=== PATIENT | female | born 1930 | race Caucasian/White ===

== ENCOUNTER 2016-07-22 11:15 | Emergency (ER) | payer MEDICARE ==
[~2016-07-22] VITALS: Ht 157.5 cm; Wt 43.1 kg
[~2016-07-22 11:15] MED LIST: ASPI81CT89 PO; ATI.5 PO; CHOL20001 PO; CILO100T13 PO; FERR325E14 PO; KEP500 PO; SIMV40TA1 PO; SIN25100 PO; ZOLP5TAB1 PO
--- NOTE | 2016-07-22 11:16 | NUR ---
Patient BIBA BLS from [facility], transferred to bed 7. RN evaluating patient at bedside.
--- NOTE | 2016-07-22 11:18 | NUR ---
BROUGHT IN VIA EMS FROM [facility] BY [facility] 1226. G-TUBE PEG OUT--PT DENIES PAIN TO ABDOMEN, BELL CATHETER NOTED, PURULENT TUBING. PT AWAKE ORIENTED TO PLACE AND EVENT; FULL CODE; HX UTI, COPD, DEMENTIA, PARKINSON'S, ALHEIZMER'S, HTN, GERD, ANEMIA, PNA, ANXIETYPATIENT PRESENTS TO ED WITH; DENIES N/V/D; SKIN IS PINK/WARM/DRY; AAOX4 WITH EVEN AND STEADY GAIT; LUNGS CLEAR BL; HR EVEN AND REGULAR; PT DENIES ANY FEVER, CP, SOB, OR COUGH AT THIS TIME; PATIENT STATES PAIN OF 0/10 AT THIS TIME; VSS; PATIENT POSITIONED FOR COMFORT; HOB ELEVATED; BEDRAILS UP X2; BED DOWN. ER MD MADE AWARE OF PT STATUS.
--- NOTE | 2016-07-22 11:19 | NUR ---
Dr. Matta evaluating patient at bedside.
--- NOTE | 2016-07-22 11:20 | NUR ---
ASSISTED DR CEVALLOS ON INSERTING A NEW GTUBE, TOLERATED WELL, AWAITING XRAY FOR PLACEMENT, WILL CONTINUE TO MONITOR
[2016-07-22 11:23] VITALS: BP 132/96
--- NOTE | 2016-07-22 11:41 | NUR ---
entry level automotive technician at bedside.
--- NOTE | 2016-07-22 12:01 | NUR ---
TUBE PLACEMENT CONFIRMED BY DR CEVALLOS THROUGH XRAY, WILL CALL [facility], AWAITING EMS FOR TRANSFER BACK TO [facility].
--- NOTE | 2016-07-22 12:10 | NUR ---
REPORT GIVEN TO RN CEMENTING BULK MATERIAL OPERATOR MILI AT [facility], NOTIFIED OF NEW G-TUBE PLACEMENT SIZE 20G, ETA FOR EMS 45 MINUTES. Addendum: 07/22/16 at 1222 by ADAM PT GOING TO ROOM 37A AT [facility] PER RN CEMENTING BULK MATERIAL OPERATOR CAMILLE
--- NOTE | 2016-07-22 13:17 | NUR ---
[facility] at bedside for return transport to [facility].
[2016-07-22 13:20] VITALS: BP 131/91
--- NOTE | 2016-07-22 13:20 | NUR ---
Patient discharged BACK TO [facility] with v/s stable. Written and verbal after care instructions given and explained. Patient verbalized understanding. Ambulance Transport with EMT GUALBERTO to custodial. All questions addressed prior to discharge. Advised to follow up with PMD.
== END 2016-07-22 13:20 ==
LOC: MED 11:15
DX: K94.23 Gastrostomy malfunction (principal); I10 Essential (primary) hypertension; Z86.73 Personal history of transient ischemic attack (TIA), and cerebral infarction without residual deficits; Z88.5 Allergy status to narcotic agent; Z88.8 Allergy status to other drugs, medicaments and biological substances; Z79.82 Long term (current) use of aspirin
CPT/HCPCS: 43760; 74241; 99284; Q0092

== ENCOUNTER 2016-08-13 17:39 | Inpatient (IN) | payer MEDICARE, MEDICAID ==
[~2016-08-13] VITALS: Ht 157.5 cm; Wt 43.1 kg
[~2016-08-13 17:39] MED LIST changes: +AMBIEN5 MG PO; -ASPI81CT89 PO; +ASPIRIN81 M1 PO; -ATI.5 PO; +ATIVAN0.5 MG PO; +CELEXA20 MG PO; -CHOL20001 PO; -CILO100T13 PO; +DIOVAN160 M1 PO; -FERR325E14 PO; +FERROUS SULFAT325 MG PO; -KEP500 PO; +KEPPRA500 MG PO; +METOPROLOL TART25 MG PO; +MIRAPEX0.5 MG PO; +NAPROSYN375 MG PO; +NEURONTIN100 MG PO; +NEURONTIN300 MG PO; +OLANZAPINE2.5 MG PO; +PLETAL100 MG PO; -SIMV40TA1 PO; -SIN25100 PO; +SINEMET 25/1001 TAB PO; +TOPROL XL25 MG PO; +ULTRAM50 MG PO; +VITAMIN D2000 I1 PO; +ZESTORETIC 12.51 TA2 PO; +ZESTRIL10 MG PO; +ZOCOR40 MG PO; -ZOLP5TAB1 PO
[2016-08-13 17:44] VITALS: BP 209/109
--- NOTE | 2016-08-13 17:46 | NUR ---
Patient BIBA ACLS accompanied by Leroy SWEENEY, transferred to bed 7. Dr. Ohara, RT, and RN evaluating patient at bedside.
[2016-08-13] MEDS ORDERED: REQUIP0.5 MG PO (17:51)
[2016-08-13] MEDS ORDERED: ULTRAM50 MG PO (17:51)
[2016-08-13] MEDS ORDERED: CARAFATE1 GM PO (17:51)
[2016-08-13 17:54] VITALS: BP 189/106
--- NOTE | 2016-08-13 18:15 | NUR ---
project technician at bedside.
--- NOTE | 2016-08-13 18:20 | NUR ---
BIBA FROM [facility] WITH C/O RESP DISTRESS; DENIES N/V/D; SKIN IS PINK/WARM/DRY; AAOX4 WITH EVEN AND STEADY GAIT; LUNGS RALES BL; HR EVEN AND REGULAR; PT DENIES ANY FEVER OR CP AT THIS TIME; PATIENT STATES PAIN OF 0/10 AT THIS TIME; VSS; PATIENT POSITIONED FOR COMFORT; HOB ELEVATED; BEDRAILS UP X2; BED DOWN. ER MD MADE AWARE OF PT STATUS.
[2016-08-13] MEDS ORDERED: NACL 0.9% 500 ML IV ONE (19:00)
[2016-08-13] MEDS ORDERED: LEVOFLOXACIN 500 MG/D5W PREMIX 100 ML IV ONE (19:00)
[2016-08-13] MEDS ORDERED: ONDANSETRON 4 MG/2 ML VIAL IVP PRN (19:30)
[2016-08-13] MEDS ORDERED: ALBUTEROL 0.083% 2.5 MG/3 ML NEBU IH PRN (19:30)
--- NOTE | 2016-08-13 19:30 | NUR ---
REPORT GIVEN TO MATEUSZ SCHAFER
[2016-08-13] MEDS ORDERED: KETOROLAC 30 MG/ML VIAL IVP PRN (19:35)
[2016-08-13] MEDS ORDERED: hePARIN / DEXT 5% PREMIX 250 ML IV SCH ×2 (19:45→20:20)
[2016-08-13] MEDS ORDERED: HEPARIN PER PHARMACY MC PRN (19:45)
[2016-08-13] MEDS ORDERED: methylPREDNISolone SS 125 MG/2 ML VIAL IVP ONE (19:45)
[2016-08-13] MEDS ORDERED: LISINOPRIL 5 MG TAB PO SCH (19:50)
[2016-08-13] MEDS ORDERED: LABETALOL 100 MG/20 ML VIAL IVP ONE (19:50)
[2016-08-13 19:56] VITALS: BP 142/75
--- NOTE | 2016-08-13 20:06 | NUR ---
Patient will be admitted to care of DR. JARRETT. Admited to TELEMETRY. Will go to [id number]. Belongings list completed. Report to LUPE CHILD.
--- NOTE | 2016-08-13 20:08 | NUR ---
incentive spirometer ordered by frankie boyer- patient is on BIPAP 03/13 100%, MACHINE RATE -16BPM, SPONTANOUS IS RR-44, [id number], IS IS ON HOLD FOR NOW
--- NOTE | 2016-08-13 20:20 | NUR ---
ADMITTED 86 YEARS OLD FEMALE FROM ER VIA [facility] FOR RESPIRATORY DISTRESS. SEE NURSING ADMISSION AND ASSESSMENT. ON BIPAP ORDERED. GT TUBE CLAMPED. PICTURES TAKEN. BODY CHECKED WITH SHOE REPAIRER HELPER. BELL CATHETER DRAINING WELL. CALL LIGHT WITHIN REACH.
--- NOTE | 2016-08-13 21:00 | NUR ---
REPOSITIONED PATIENT ASSISTED BY CHILD SUPPORT AGENT.
[2016-08-13] MEDS: NACL 0.9% 1,000 ML IV SCH (21:52)
[2016-08-13] MEDS: METOPROLOL 25 MG TAB PO SCH (21:53)
[2016-08-13] MEDS ORDERED: CLINDAMYCIN 600 MG/4 ML VIAL ONE (23:35)
--- NOTE | 2016-08-14 | NUR ---
RT AT BEDSIDE TO CHECK ON PATIENT. VITAL SIGNS STABLE. CALL LIGHT WITHIN REACH.
[2016-08-14] MEDS: CLINDAMYCIN 600 MG in DEXTROSE 5% 50 ML IV SCH ×5 (00:18→23:26)
[2016-08-14 00:37] VITALS: BP 150/73
--- NOTE | 2016-08-14 00:40 | NUR ---
RESIDENT PAGED FOR ORDERS.
--- NOTE | 2016-08-14 01:12 | NUR ---
SECOND PAGED FOR RESIDENT.
--- NOTE | 2016-08-14 01:45 | NUR ---
SPOKE TO RESIDENT PERFORMANCE MANAGER, WILL ORDER PTT AT 0345. Addendum: 08/14/16 at 0717 by Karen Chavis RN MENTIONED TO RESIDENT IF OKAY TO ORDER WOUND CARE CONSULT AND WOUND CULTURE, WILL NOT ORDER FOR NOW.
[2016-08-14] MEDS: NACL 0.9% 1,000 ML IV SCH (02:56)
[2016-08-14] MEDS: ALBUTEROL 0.083% 2.5 MG/3 ML NEBU IH SCH ×4 (03:51→19:13)
[2016-08-14 04:22] VITALS: BP 128/67
--- NOTE | 2016-08-14 04:24 | NUR ---
PERICARE DONE WITH MINER PLACER. REPOSITIONED BY MINER PLACER. VITAL SIGNS STABLE, RR-27. CALL LIGHT WITHIN REACH.
[2016-08-14] MEDS: methylPREDNISolone SS 125 MG/2 ML VIAL IVP SCH ×3 (04:40→23:24)
[2016-08-14] MEDS ORDERED: CLINDAMYCIN 600 MG/4 ML VIAL ONE (05:34)
[2016-08-14] MEDS: BUDESONIDE 0.5 MG/2 ML NEBU INH SCH ×2 (06:38→19:13)
--- NOTE | 2016-08-14 06:38 | NUR ---
RECEIVED PT ON VISION BIPAP ST 12\6 RR 16 FIO2 50 ALARMS ARE ON AND FUNCTIONAL BS COARSE PT IN HF QUIET WEARING MED SIZE MASK GEL UNDER MASK CONT POX PLACED BEDSIDE HHN GIVEN I\L WITH 2.5 MG ALBUTEROL BIPA POX PLUGGED INTO RED OUTLET
--- NOTE | 2016-08-14 07:16 | NUR ---
ENDORSED CARE AT BEDSIDE WITH COLT CHILD, PATIENT IN STABLE CONDITION.
--- NOTE | 2016-08-14 07:17 | NUR ---
RECEIVED PT ASLEEP, NON VERBAL, ON BIPAP WITH RESPIRATORY RATE OF 36. ALSO WITH BELL CATHETER CONNECTED TO URINE BAG DRAINING YELLOW URINE, WITH IV ACCESS AT LEFT HAND 22G ON SALINE LOCK PATENT AND INTACT. ALSO WITH IV ACCESS AT LEFT AC 20G INFUSING FLUIDS WELL. WITH DRESSING AT SACRAL WOUND DRY AND INTACT. WITH SCDS ON. WITH BILATERAL CRACKLES HEARD UPON AUSCULTATION. PLACED PT ON FALL RISK. SAFETY PRECAUTIONS ENFORCED. CALL LIGHT WITHIN REACH, WILL CONTINUE TO MONITOR.
[2016-08-14 08:00] VITALS: BP 147/71
--- NOTE | 2016-08-14 08:11 | NUR ---
FIO2 INCREASED TO 60 PT DESATS
[2016-08-14] MEDS: ATORVASTATIN 20 MG TAB PO SCH (08:29)
[2016-08-14] MEDS: LISINOPRIL 5 MG TAB PO SCH (08:29)
[2016-08-14] MEDS: METOPROLOL 25 MG TAB PO SCH ×2 (08:30→23:24)
[2016-08-14] MEDS: FERROUS SULFATE 325 MG TABEC PO SCH (08:30)
[2016-08-14] MEDS: ASPIRIN 81 MG TAB.CHEW PO SCH (08:30)
--- NOTE | 2016-08-14 08:30 | NUR ---
FORREST REPORTED TO DR JARRETT
--- NOTE | 2016-08-14 08:30 | NUR ---
SPO2 AT 88-91, RT INFORMED. RT AT BEDSIDE
--- NOTE | 2016-08-14 08:31 | NUR ---
BIPAP CHECK BS COARSE SX SET UP AND MASK REMOVED SX LG YELLOW ORALLY MASK REPLACED GEL UNDER MASK
--- NOTE | 2016-08-14 08:37 | NUR ---
VERIFIED GT PATENCY. DUE MEDS GIVEN VIA GT, PT TOLERATED WELL.
--- NOTE | 2016-08-14 08:59 | NUR ---
PATIENT HAS BEEN SCREENED AND CATEGORIZED HIGH NUTRITION RISK. PATIENT WILL BE SEEN WITHIN 1-2 DAYS OF ADMISSION. 08/14/16-08/15/[address]
--- NOTE | 2016-08-14 09:20 | NUR ---
PT TRANSFERRED TO WOUND CARE BED
--- NOTE | 2016-08-14 10:22 | NUR ---
PT SPO2 AT 83-84%. RT CALLED TO BEDSIDE
--- NOTE | 2016-08-14 10:31 | NUR ---
BIPAP CHECK BS INSP WHEEZING PRN HHN GIVEN I\L WITH 2.5 MG ALBUTEROL FIO2 INCREASED TO 100 SPO2 WAS 84 ON 60
[2016-08-14] MEDS ORDERED: hePARIN / DEXT 5% PREMIX 250 ML IV SCH ×2 (10:50)
[2016-08-14] MEDS ORDERED: HEPARIN PER PHARMACY MC PRN ×2 (10:50)
--- NOTE | 2016-08-14 11:03 | NUR ---
CM NOTE PER CLOTH FEEDER JJ [phone], REVIEWS SHOULD ONLY BE SENT TO [facility]. SENT INITIAL REVIEW TO [facility] FAX# [phone] MARGIE RINCON PH# [phone]
[2016-08-14 12:00] VITALS: BP 138/63
[2016-08-14] MEDS: hePARIN / DEXT 5% PREMIX 250 ML IV SCH (12:50)
--- NOTE | 2016-08-14 12:53 | NUR ---
HEPARIN DRIP STARTED
--- NOTE | 2016-08-14 13:11 | NUR ---
08/14/16 RD INITIAL ASSESSMENT COMPLETED PLEASE REFER TO NUTRITION ASSESSMENT UNDER CARE ACTIVITY FOR ESTIMATED NUTRITIONAL NEEDS. 1. CONTINUE VITAMIN C SUPPLEMENTATION 2. WHEN MEDICALLY FEASIBLE, RESUME ENTERAL NUTRITION SUPPORT VIA G-TUBE: ISOSOURCE 1.5 JENNA TO START SLOW AT 30 ML/HR X20 HRS (12P-8A), AND ADVANCE 10 ML Q8H TO A GOAL RATE OF 50 ML/HR X20H (12P-8A). THIS WILL PROVIDE 1500 KCAL, 68 G PROTEIN, 808 ML FREE WATER (MEETS 100% KCAL+PROTEIN ESTIMATED NEEDS) 3. RD TO FOLLOW-UP 2-3 DAYS; HIGH RISK SONIYA BLACK RD Addendum: 08/16/16 at [address] RD SPOKE WITH RESIDENT REGARDING TUBE FEEDING FORMULA. ERICKSON RECOMMENDED ISOSOURCE 1.5 AT 30 ML/HR X24 HOURS AND ADVANCE TOLERATED 10 ML Q6H TO GOAL OF 45 ML/HR VS ABOVE RECOMMENDATION OF ISOSOURCE 1.5 GOAL OF 30 ML X 20 HOURS. AT GOAL OF 45 ML/HR THIS WILL PROVIDE: 1080 ML TOTAL VOLUME, 1620 KCAL, 73 GM PROTEIN TO MEET 100% OF PT ESTIMATED KCAL AND PROTEIN NEEDS NIRANJAN CALVERT RD
--- NOTE | 2016-08-14 13:19 | NUR ---
BIPAP CHECK DIMINISHED HHN GIVEN I\L WITH 2.5MG ALBUTEROL APNEA SET 20 SECONDS
--- NOTE | 2016-08-14 14:11 | NUR ---
SON AT BEDSIDE, WAITING TO SPEAK TO CM REGARDING HOSPICE PLACEMENT
--- NOTE | 2016-08-14 15:04 | NUR ---
SS NOTE: I SPOKE WITH DR. SERRANO. SHE STATED THAT PT WILL REQUIRE BI-PAP AT HOME ON HOSPICE. I SPOKE WITH PT'S SON, MAGO. HE STATED THAT HE WOULD LIKE TO HAVE HOSPICE COME TO EVALUATE PT. HE ALSO STATED THAT HE DOES NOT HAVE A PREFERENCE TO WHICH HOSPICE AGENCY THAT COMES TO SEE PT LONG IT IS NOT [facility].
--- NOTE | 2016-08-14 15:19 | NUR ---
BIPAP CHECK BS DIMINISHED DECREASE FIO2 TO 75
--- NOTE | 2016-08-14 15:21 | NUR ---
SS NOTE: PER RA FROM [facility] ([phone]), THEY CAN ACCOMMODATE PT'S NEED FOR BI-PAP. SHE ALSO STATED THAT THEY WILL CONTACT PT'S FAMILY TO ARRANGE A MEETING TIME.
[2016-08-14 16:00] VITALS: BP 123/53
--- NOTE | 2016-08-14 16:55 | NUR ---
PT JORGE ARMANDO AT BEDSIDE, SIGNED POLST FORM, PT NOW ON MODIFIED CODE
--- NOTE | 2016-08-14 17:05 | NUR ---
BIPAP CHECK BS DIMINISHED
--- NOTE | 2016-08-14 18:58 | NUR ---
IV OUT, REINSERTED IV AT RIGHT AC 20G INFUSING FLUIDS WELL.
[2016-08-14] MEDS ORDERED: LEVOFLOXACIN 750 MG/D5W PREMIX 150 ML IV SCH (19:00)
--- NOTE | 2016-08-14 19:10 | NUR ---
RECEIVED REPORT FROM MATEUSZ STEINER AT BEDSIDE. INITIAL ASSESSMENT COMPLETED. PT NONVERBAL. PT BEDBOUND. PT HAS IV TO RIGHT AC 20 G, AND LEFT HAND G 22 INFUSING HEPARIN. PT HAS A SACRAL WOUND COVERED WITH DRESSING DRY AND INTACT. PT HAS A G TUBE; PATENT AND INTACT. PT HAS A BELL CATHETER IN PLACE. PT ON BIPAP; RT AT BEDSIDE AT THIS TIME. PT STABLE, WILL CONTINUE TO MONITOR PT.
--- NOTE | 2016-08-14 19:24 | NUR ---
ENDORSED PT TO MATEUSZ CALERO FOR CONTINUITY OF CARE IN STABLE CONDITION
[2016-08-14 20:00] VITALS: BP 112/56
--- NOTE | 2016-08-14 20:00 | NUR ---
PT TURNED/REPOSITIONED. WILL CONTINUE TO MONITOR PT.
[2016-08-14] MEDS ORDERED: LEVOFLOXACIN 250 MG/D5 PREMIX 50 ML IV SCH (21:00)
--- NOTE | 2016-08-14 21:20 | NUR ---
TALKED TO DR. CABRERA TO IS COVERING FOR DR. JARRETT REGARDING PT'S HEPARIN DRIP. DR. CABRERA ORDER TO CONTINUE WITH HEPARIN PROTOCOL IT IS IN [facility]. WILL FOLLOW UP ON ORDERS.
--- NOTE | 2016-08-14 21:35 | NUR ---
HEPARIN BOLUS GIVEN AND HEPARIN INCREASED PER DR. CABRERA ORDERED. WILL CONTINUE TO MONITOR PT.
--- NOTE | 2016-08-14 21:50 | NUR ---
DR. PAGAN IN TO SEE PT. WILL FOLLOW UP ON ORDERS.
--- NOTE | 2016-08-14 22:00 | NUR ---
PT TURNED/REPOSITIONED. WILL CONTINUE TO MONITOR PT.
[2016-08-14] MEDS: rOPINIRole 0.25 MG TAB PO SCH (23:25)
--- NOTE | 2016-08-14 23:30 | NUR ---
G TUBE PATENT. WILL CONTINUE TO MONITOR PT.
[2016-08-15] VITALS: BP 99/56
--- NOTE | 2016-08-15 | NUR ---
PT TURNED/REPOSITIONED. WILL CONTINUE TO MONITOR PT.
--- NOTE | 2016-08-15 00:05 | NUR ---
PT ON BIPAP. PT SHOWING LABORED BREATHING. WILL CONTINUE TO MONITOR PT.
[2016-08-15] MEDS: ALBUTEROL 0.083% 2.5 MG/3 ML NEBU IH SCH ×4 (01:31→19:45)
--- NOTE | 2016-08-15 01:34 | NUR ---
RT AT BEDSIDE. WILL CONTINUE TO MONITOR PT.
--- NOTE | 2016-08-15 02:00 | NUR ---
PT TURNED/REPOSITIONED. WILL CONTINUE TO MONITOR PT.
--- NOTE | 2016-08-15 03:30 | NUR ---
CHILD DEVELOPMENT ASSISTANT AT BEDSIDE DRAWING BLOOD. WILL CONTINUE TO MONITOR PT.
[2016-08-15 04:00] VITALS: BP 98/61
--- NOTE | 2016-08-15 04:02 | NUR ---
RECEIVED CRITICAL LAB VALUE CARBON DIOXIDE 41. VALUE TRENDING DOWN. CHARGE NURSE AWARE. Addendum: 08/15/16 at 0456 by Kaylie Pizarro RN WRONG INTERVENTION.
--- NOTE | 2016-08-15 04:05 | NUR ---
PT TURNED/REPOSITIONED. WILL CONTINUE TO MONITOR PT.
--- NOTE | 2016-08-15 04:50 | NUR ---
RECEIVED CRITICAL LAB VALUE C02 41. CALL[address] DR. CABRERA WHO IS COVERING FOR DR. JARRETT. AWAITING LUBE MAN BACK.
--- NOTE | 2016-08-15 05:00 | NUR ---
TALKED TO DR. CABRERA TO NOTIFY HER ABOUT CRITICAL LAB VALUE OF CO2 41.0. DR. CABRERA STATED THAT BIPAP NEEDS TO BE ADJUSTED. WILL INFORM RT.
--- NOTE | 2016-08-15 05:05 | NUR ---
INFORMED RT HANA ABOUT ADJUSTING BIPAP ON PT. WILL CONTINUE TO MONITOR PT.
--- NOTE | 2016-08-15 05:25 | NUR ---
HEPARIN BOLUS GIVEN AND AND HEPARIN DRIP ADJUSTED ORDERED. WILL CONTINUE TO MONITOR PT.
[2016-08-15] MEDS: CLINDAMYCIN 600 MG in DEXTROSE 5% 50 ML IV SCH ×3 (05:51→19:07)
[2016-08-15] MEDS: methylPREDNISolone SS 125 MG/2 ML VIAL IVP SCH ×3 (05:52→21:21)
--- NOTE | 2016-08-15 06:00 | NUR ---
PT TURNED/REPOSITIONED. WILL CONTINUE TO MONITOR PT.
--- NOTE | 2016-08-15 06:29 | NUR ---
REC'D PT ON VISION BIPAP SETTINGS 12\6 RR 16 FIO2 75% ALARMS ON AND FUNCTIONING PROPERLY, AMBU BAG SIDE OF BIPAP AND BIPAP IS PLUGGED INTO RED OUTLET, I\L TXS GIVEN WITH ALBUTEROL 2.5MG AND PULMICORT 0.5MG WITH NO ADVERSE REACTION POST TX, B\S ARE COARSE BILATERALLY, PT IS WEARING MED FACE MASK WITH PROTETIC GEL IN PLACE AND SKIN INTEGRITY IS INTACT PT IS RESTING
[2016-08-15] MEDS: BUDESONIDE 0.5 MG/2 ML NEBU INH SCH ×2 (06:39→19:45)
--- NOTE | 2016-08-15 07:15 | NUR ---
REPORT RECEIVED AT BEDSIDE, PATIENT LYING COMFORTABLY IN BED, NO SIGN OF DISTRESS NOTED. PATIENT ON BIPAP AND HEPARIN DRIP AT 7 ML/HR.
--- NOTE | 2016-08-15 07:28 | NUR ---
ABG DRAWN ON RR WITHOUT INCIDENT AND RESULTS WERE GIVEN TO DR. AYALA AT 0742 AND ORDERS TO CHANGE BIPAP SETTINGS TO 14\7 RR20 FIO2 65% AND ABG AT 1100, CHANGES TO BIPAP WERE MADE AT 0745 AND MATEUSZ WU
--- NOTE | 2016-08-15 07:30 | NUR ---
ENDORSED PLAN OF CARE TO DAY SHIFT NURSE. PT IN STABLE CONDITION.
[2016-08-15 08:17] VITALS: BP 101/41
[2016-08-15] MEDS: METOPROLOL 25 MG TAB PO SCH ×2 (09:00→21:21)
[2016-08-15] MEDS: LISINOPRIL 5 MG TAB PO SCH (09:00)
--- NOTE | 2016-08-15 09:00 | NUR ---
WOUND CARE EVALUATION NOTES: REASON FOR EVALUATION: SACRAL DECUB COMPLETE SKIN ASSESSMENT DONE ON THIS 86 Y/O FEMALE PATIENT [facility], WITH INITIAL DIAGNOSIS OF ASPIRATION PNEUMONIA. PAST MEDICAL HISTORY INCLUDE COPD, HYPERTENSION, ALZHEIMER'S DEMENTIA, CVA AND CHRONIC RENAL FAILURE. ALL ABOVE INFORMATION WAS OBTAINED FROM THE ADMISSION H&P. LABS INCLUDE WBC 23.6, H/H 8.7/27.4, GLUCOSE 142, ALBUMIN 2.2, PT/INR 10.0/1.1 AND PTT 28.3. CURRENT MEDS INCLUDE ASCORBIC, LEVOFLOXACIN, HEPARIN, TRAMADOL, METHYLPREDNISOLONE AND CLINDAMYCIN. PATIENT IS LETHARGIC AT THIS TIME, ON BIPAP. SKIN WARM TO TOUCH WNL, THICKENED, YELLOW TOENAILS, NO EDEMA, NO HAIR GROWTH AND +2 BILATERAL PEDAL PULSES. FC 16FR PATENT AND INTACT TO LIGHT AARON URINE IN MODERATE AMOUNT. LUQ G TUBE, INTACT WITH GREENISH DISCHARGE NOTED ON THE PERISTOMAL AREA. SURGICAL SCARRING NOTED ON THE RIGHT ISCHIUM. NEEDS MAX ASSISTANCE IN TURNING. INITIAL PLAN OF CARE AND PRESSURE PREVENTIVE MEASURES DISCUSSED, UNABLE TO VERBALIZE UNDERSTANDING. WILL REINFORCE TEACHING. NO FAMILY MEMBER PRESENT AT THIS TIME, WILL FOLLOW UP. INTEGUMENTARY: LEFT HIP - ST II - INTACT BLISTER LEFT ISCHIUM - ST II - INTACT BLISTER SACRUM - UTD RECOMMENDATIONS: -CLEANSE SACRALCOCCYX WITH NS AND GAUZE, PAT DRY, APPLY THERAHONEY GEL, COVER WITH ADAPTIC AND COMPOSITE DRESSING Q DAY AND PRN WITH SOILING/DISPLACEMENT. -CLEANSE PERIAREA WITH MILD SOAP AND WATER, PAT DRY, APPLY Z GUARD BIDWC AND PRN WITH SOILING. LEAVE OPEN TO AIR -PAINT LEFT HIP AND LEFT ISCHIUM WITH SKIN PREP WIPES BIDWC AND LEAVE OPEN TO AIR -TURN AND REPOSITION PATIENT Q2H TO LEFT AND RIGHT SIDE ONLY TO OFFLOAD SACRALCOCCYX -ASSESS AND MONITOR SKIN CONDITION DURING POSITION CHANGE, PLEASE PAY PARTICULAR ATTENTION TO SACRALCOCCYX, ELBOWS AND HEELS -OFFLOAD BILATERAL HEELS BY PLACING PILLOWS UNDER CALVES AT ALL TIMES, UNLESS OTHERWISE CONTRAINDICATED -PRESSURE REDISTRIBUTION SURFACE THERAPY -KEEP SKIN CLEAN AND DRY AT ALL TIMES -SURGICAL CONSULT IF OK WITH PMD. RECOMMENDATIONS DISCUSSED WITH PRIMARY RN AND RESIDENT PHYSICIAN, DR. AYALA. WILL FOLLOW UP PATIENT Q 7 DAYS. PLEASE CONTACT [facility] FOR ANY CONCERNS, QUESTINS AND CHANGES IN SKIN CONDITION.
--- NOTE | 2016-08-15 09:05 | NUR ---
BIPAP CHECK PT SLEEPING W/ NO SIGNS OF DISTRESS AT THIS TIME
[2016-08-15] MEDS ORDERED: THERAHONEY GEL 42.5 GM TP PRN (09:10)
[2016-08-15] MEDS ORDERED: Z-GUARD PASTE TP PRN (09:10)
[2016-08-15] MEDS: hePARIN / DEXT 5% PREMIX 250 ML IV SCH (09:13)
--- NOTE | 2016-08-15 11:03 | NUR ---
SS NOTE: PER FELI FROM [facility], PT HAS EXHAUSTED HER HOSPICE BENEFITS I SPOKE WITH PT'S SON, MAGO REGARDING THE ABOVE INFORMATION. HE STATED THAT [facility] ALSO CALLED HIM TO EXPLAIN THE ABOVE INFORMATION. HE STATED THAT HE WOULD PREFER HOME HEALTH FOR PT INSTEAD OF HOSPICE AND DOES NOT WANT [facility].
--- NOTE | 2016-08-15 11:05 | NUR ---
BIPAP CHECK, ABG DRAWN ON RR W/O INCIDENT. AND RESULTS GIVEN TO DR. AYALA AT 11:20. WITH NO CHANGES MADE TO BIPAP. DR. AYALA ORDERED TO TITRATE FIO2 AT 88-92%
--- NOTE | 2016-08-15 11:09 | NUR ---
CM NOTE SENT CONCURRENT REVIEW TO [facility] FAX# [phone] MARGIE RINCON PH# [phone]
[2016-08-15] MEDS: CALCIUM ACETATE 667 MG TAB GT SCH ×2 (12:26→17:00)
[2016-08-15] MEDS: ASCORBIC ACID 500 MG/5 ML ORASYR GT SCH (12:27)
[2016-08-15] MEDS: SUCRALFATE 1 GM TAB PO SCH (12:27)
[2016-08-15] MEDS: FERROUS SULFATE 325 MG TABEC PO SCH (12:27)
[2016-08-15] MEDS: ASPIRIN 81 MG TAB.CHEW PO SCH (12:27)
[2016-08-15] MEDS: ATORVASTATIN 20 MG TAB PO SCH (12:27)
[2016-08-15 12:30] VITALS: BP 149/33
[2016-08-15] MEDS: traMADol 50 MG TAB PO PRN ×2 (12:38→22:55)
--- NOTE | 2016-08-15 12:53 | NUR ---
DAVE NOTE SENT ORDER FOR BIPAP AND HOME HEALTH FOR WOUND CARE TO [facility] FAX# [phone] MARGIE PH# [phone]
[2016-08-15] MEDS: THERAHONEY GEL 42.5 GM TP SCH (13:00)
[2016-08-15] MEDS: Z-GUARD PASTE TP SCH (13:00)
--- NOTE | 2016-08-15 13:12 | NUR ---
BIPAP CHECK,I/L TX GIVEN WITH ALBUTEROL 2.5 MG W/O ADVERSE REACTION. POST TX BS ARE COURSE. PT HAS EYES OPEN
--- NOTE | 2016-08-15 13:24 | NUR ---
DECREASED FIO2 TO 50% AND RN BRYCE NOTIFIED OF CHANGES MADE TO BIPAP
--- NOTE | 2016-08-15 13:25 | NUR ---
DAVE KAY SPOKE WITH DAVE RINCON OF [facility] AND SHE SAID SHE HAS CALLED AND FAXED [facility] FOR PATIENT'S BIPAP TO BE DELIVERED BEDSIDE. PER DAVE HANSON, SHE IS SETTING UP PATIENT'S HOME HEALTH FOR WOUND CARE WITH [facility]# [id number] # [phone] TO START WHEN THE PATIENT IS DISCHARGED. Addendum: 08/15/16 at 1340 by Betty Kraus CM INFORMED DAVE HANSON OF ADDRESS OF PATIENT'S SON MAGO WHERE PATIENT WILL BE GOING WHEN DISCHARGED FOR REFERENCE FOR PATIENT'S HOME HEALTH.
--- NOTE | 2016-08-15 13:36 | NUR ---
LATEST PTT DRAWN AT 1117 (48.8), NO CHANGE ON HEPARIN DRIP, NEXT PTT WILL BE AT 1717. WILL INFORM RESIDENCE DOCTOR TO PUT THE ORDER.
--- NOTE | 2016-08-15 15:16 | NUR ---
BIPAP CHECK, PT IS RESTING NO CHANGES MADE
[2016-08-15] MEDS: NACL 0.9% 1,000 ML IV SCH (15:28)
--- NOTE | 2016-08-15 15:55 | NUR ---
SPOKE WITH MAGO (SON) OVER THE PHONE [phone], NOTIFIED BIPAP MACHINE WILL BE DELIVERED TODAY IN PATIENT RESIDENCE AND SOMEONE HAS TO BE THERE FOR TEACHING. MAGO VERBALIZED UNDERSTANDING GAVE [facility] TEL NUMBER [phone] RAUL LAMAS.
[2016-08-15 17:00] VITALS: BP 147/64
--- NOTE | 2016-08-15 17:05 | NUR ---
BIPAP CHECK, TITRATED FIO2 TO 45% PER DR'S PERMITTERS TO KEEP SATURATION BWTN 88-92%, & CHANGED POX. INFORMED RN (BRYCE) OF CHANGES.
--- NOTE | 2016-08-15 19:30 | NUR ---
SBAR REPORT GIVEN TO MANAGER ADVERTISING RN
--- NOTE | 2016-08-15 19:55 | NUR ---
PRESSURE ULCER NOTED ON PT'S BRIDGE OF HER NOSE. PROTECTIVE GEL WASN'T PLACED RIGHT. WILL NOTIFY RT.
[2016-08-15 20:00] VITALS: BP 132/59
--- NOTE | 2016-08-15 20:00 | NUR ---
SEEN PT APPEARS ASLEEP BUT OPENS HER EYES ON MOVEMENT. PT APHASIC, JUST MOANS AND GROANS. INITIAL ASSESSMENT DONE. VITAL SIGNS CHECKED. NO RESIDUAL ON GTUBE NOTED THEN FLUSHED W/ 20ML OF WATER. PT REPOSITIONED FOR COMFORT. SAFETY REINFORCED. WILL CONTINUE TO MONITOR.
--- NOTE | 2016-08-15 20:01 | NUR ---
RECEIVED PT ON BIPAP 19/10, RATE 20, FI02 45%. PT IS NON VERBAL. OPENS EYES AND MOANS. ADMINISTERED HHNTX, NO CHANGES NOTED. PT HAVE REDNESS ON BRIDGE AND SIDE OF THE NOSE. PROTECTIVE GEL IN PLACE. WILL CONT TO MONITOR.
[2016-08-15] MEDS: rOPINIRole 0.25 MG TAB PO SCH (21:20)
--- NOTE | 2016-08-15 21:21 | NUR ---
NO RESIDUAL ON GTUBE. MEDICATIONS CRUSHED AND GIVEN VIA GTUBE. NO RESISTANCE MET. FOLLOWED BY 50ML OF WATER FLUSH. WILL CONTINUE TO MONITOR.
--- NOTE | 2016-08-15 22:45 | NUR ---
PT SPO2 WAS 82%, INCREASE FI02 TO 55%, SPO2 IMPROVED TO 92%. YOCASTA CHILD AWARE, WILL CONT TO MONITOR.
--- NOTE | 2016-08-15 23:15 | NUR ---
PT SP02 86% INCREASE FI02 TO 60% SP02 IMPROVED TO 91%, YOCASTA RN AT BEDSIDE. WILL CONT TO MONITOR.
--- NOTE | 2016-08-15 23:25 | NUR ---
PAGED FEEDER OPERATOR DOCTOR FOR DR JARRETT. WILL AWAIT FOR CALL BACK.
--- NOTE | 2016-08-15 23:27 | NUR ---
SPOKE TO DR CABRERA REGARDING PT BEING TACHYPNEIC AND THAT HER BIPAP WAS ADJUSTED TO 60% FIO2 BECAUSE HER O2SAT IS 86%-88%. DR CABRERA SAID SHE WILL ORDER A LOW DOSE ATIVAN.
[2016-08-15] MEDS ORDERED: LORazepam 2 MG/ML VIAL IVP ONE (23:35)
[2016-08-16] VITALS (9 sets, daily range): BP systolic 0–158; BP diastolic 0–83
[2016-08-16] MEDS: CLINDAMYCIN 600 MG in DEXTROSE 5% 50 ML IV SCH ×4 (00:02→17:34)
--- NOTE | 2016-08-16 00:03 | NUR ---
PT GIVEN ATIVAN 0.5MG IVPX1 ORDERED WELL CLEOCIN IVP. PT REPOSITIONED FOR COMFORT.
[2016-08-16] MEDS: Z-GUARD PASTE TP SCH ×2 (01:22→12:16)
[2016-08-16] MEDS: ALBUTEROL 0.083% 2.5 MG/3 ML NEBU IH SCH ×4 (01:25→19:08)
--- NOTE | 2016-08-16 01:25 | NUR ---
PT APPEARS MORE COMFORTABLE NOW. RR 30 W/ 92% FIO2. PT REPOSITIONED FOR COMFORT.
--- NOTE | 2016-08-16 04:20 | NUR ---
SEEN PT APPEARS ASLEEP AND COMFORTABLE. VITAL SIGNS CHECKED. PT MOANS WHEN MOVED. PT REPOSITIONED FOR COMFORT.
[2016-08-16] MEDS: methylPREDNISolone SS 125 MG/2 ML VIAL IVP SCH ×3 (05:19→22:52)
[2016-08-16] MEDS: NACL 0.9% 1,000 ML IV SCH (05:20)
--- NOTE | 2016-08-16 05:25 | NUR ---
PT SPO2 98%, TITRATED FI02 TO 50%. YOCASTA CHILD AWARE. WILL ENDORSE CONT OF CARE TO AM RT.
--- NOTE | 2016-08-16 06:20 | NUR ---
NO RESIDUAL ON GTUBE NOTED. RT DECREASED FIO2 TO 50%. PT O2SAT 96% PT REPOSITIONED FOR COMFORT.
[2016-08-16] MEDS: BUDESONIDE 0.5 MG/2 ML NEBU INH SCH ×2 (07:19→19:08)
--- NOTE | 2016-08-16 07:19 | NUR ---
RECEIVED ON A BIPAP VISION PLUGGED INTO RED OUTLET TOLERATING WELL TO A MEDIUM FACIAL MASK SECURED WITH HEAD GEAR AMBU BAG NOTED AT HOB LOC ASLEEP RESPONDS TO MOVEMENT IN SFW POSITION BED RAILS UP X 2 BREATH SOUND DIMINISHED BILATERAL WITH GOOD CHEST RISE AIRWAY PATENT HHN THERAPY GIVEN ORDERED VIA INLINE TOLERATED WELL WITHOUT INCIDENT
--- NOTE | 2016-08-16 07:30 | NUR ---
RECEIVED REPORT, ASSUMED CARE. PT SLEEPING AT THIS TIME, EASILY AROUSABLE. NO RESPIRATORY DISTRESS NOTED. PT ON BIPAP, O2 SAT 94-96% FIO2 OF 50%. ALL NEEDS ANTICIPATED AND KEPT COMFORTABLE. GTF INFUSING @30ML/HR, PT TOLERATING WELL. WILL CONTINUE TO MONITOR.
--- NOTE | 2016-08-16 07:30 | NUR ---
REPORT GIVEN TO DAYSHIFT NURSE.
--- NOTE | 2016-08-16 07:50 | NUR ---
SATURATION 99% ON FIO2 OF 50% POST HHN THERAPY TITRATED FIO2 TO 40% BRYCE/RN NOTIFIED
--- NOTE | 2016-08-16 08:00 | NUR ---
SPOKE WITH PT'S SON MAGO OVER THE PHONE ([phone]) AND STATED THAT THE BIPAP WAS DELIVERED LAST NIGHT AT THEIR HOUSE AND THAT HE WAS TAUGHT ON HOW TO SET IT UP BUT THERE IS ONE HOSE THAT'S MISSING AND [facility] DO NOT HAVE IT IN STOCK. MAGO STATED HE WILL COME OVER WITH HIS BROTHER AND BRING THE PORTABLE BIPAP MACHINE IN AN HOUR OR SO. RESPIRATORY THERAPIST TAWANNA NOTIFIED AND STATED HE WILL REINFORCE TEACHING IF THEY NEED SO.
--- NOTE | 2016-08-16 08:19 | NUR ---
ASLEEP RESTING WELL GOOD CHEST RISE SATURATION 95% ON FIO2 OF 40% CONTINUOUS PULSE OXIMETRY AT BEDSIDE ON AND FUNCTIONING WELL LOW SATURATION ALARM SET AT 90%
[2016-08-16] MEDS: ASCORBIC ACID 500 MG/5 ML ORASYR GT SCH (09:48)
[2016-08-16] MEDS: METOPROLOL 25 MG TAB PO SCH ×2 (09:49→22:53)
[2016-08-16] MEDS: CALCIUM ACETATE 667 MG TAB GT SCH ×3 (09:49→17:15)
[2016-08-16] MEDS: SUCRALFATE 1 GM TAB PO SCH (09:49)
[2016-08-16] MEDS: ATORVASTATIN 20 MG TAB PO SCH (09:49)
[2016-08-16] MEDS: FERROUS SULFATE 325 MG TABEC PO SCH (09:49)
[2016-08-16] MEDS: ASPIRIN 81 MG TAB.CHEW PO SCH (09:50)
[2016-08-16] MEDS: LISINOPRIL 5 MG TAB PO SCH (09:50)
--- NOTE | 2016-08-16 10:37 | NUR ---
CM NOTE SENT CONCURRENT REVIEW AND TUBE FEEDING FORMULA TO [facility] FAX# [phone] MARGIE RINCON PH# [phone]
--- NOTE | 2016-08-16 11:15 | NUR ---
PT FAMILY PRESENT BEDSIDE INQUIRING ABOUT HOME HEALTH BIPAP MACHINE EXPLAINED WE DO NOT USE THIS BIPAP MACHINE AT THIS HOSP NOR HAVE i been inserviced with it pt family member stated home health company had already spoke to him about it but that he was still not sure I SUGGESTED HE CALL [facility] [employer] RESCHEDULE A MEETING TO BECOME MORE SURE ABOUT THINGS BEFORE HE PLACES PT ON BIPAP MACHINE
--- NOTE | 2016-08-16 11:18 | NUR ---
PATIENT'S SON, MAGO, AT BEDSIDE AT THIS TIME WITH BILL FROM RT, GIVING EDUCATION AND INSTRUCTIONS RE: BIPAP MACHINE.
[2016-08-16] MEDS ORDERED: CLINDAMYCIN 600 MG/4 ML VIAL ONE (11:50)
--- NOTE | 2016-08-16 11:50 | NUR ---
BRYCE/RN AND DOLPHIN TRAINER AT BEDSIDE FOR PHYSICAL HYGIENE AND REPOSITION NO DISTRESS NOTED BIPA ON AND FUNCTIONING WELL PAIRER SUBSTANDARD TO ASSESS AT A LATER TIME
--- NOTE | 2016-08-16 12:00 | NUR ---
PT TOLERATED G-TUBE FEEDING OF 30 ML/HR, ZERO RESIDUAL NOTED. FEEDING INCREASED TO 40 ML/HR ORDERED. WILL CONTINUE TO MONITOR.
[2016-08-16] MEDS: ISOSORBIDE DINITRATE 10 MG TAB GT SCH ×2 (12:07→17:17)
[2016-08-16] MEDS: THERAHONEY GEL 42.5 GM TP SCH (12:16)
--- NOTE | 2016-08-16 12:25 | NUR ---
ASLEEP TOLERATING BIPAP TO MASK WELL WITH ADVERSE REACTIONS NOTED GOOD CHEST RISE
--- NOTE | 2016-08-16 13:16 | NUR ---
RESTING COMFORTABLY GOOD CHEST RISE AIRWAY PATENT
--- NOTE | 2016-08-16 15:20 | NUR ---
DAVE KAY SPOKE WITH DAVE HANSON OF [facility]# [phone] AND SHE SAID FOR [employer] TUBE FEEDING AUTH# [id number]. PER DAVE HANSON, SHE SENT THE HARD COPY OF THE AUTH TO [employer].
--- NOTE | 2016-08-16 15:21 | NUR ---
ASLEEP GOOD CHEST RISE TITRATED IPAP [id number] EPAP 6cmH20 with SpVt AT +250ML RELOCATION DIRECTOR TO MONITOR CONTINUOS PULSE OXIMETRY AT BEDSIDE ON AND FUNCTIONING WELL LOW SATURATION ALARM SET AT 90%
--- NOTE | 2016-08-16 16:00 | NUR ---
PT TOLERATED G-TUBE FEEDING OF 40 ML/HR, ZERO RESIDUAL NOTED. FEEDING INCREASED TO 50 ML/HR GOAL ORDERED. WILL CONTINUE TO MONITOR.
--- NOTE | 2016-08-16 16:46 | NUR ---
CALLED PT'S SON MAGO AND GAVE RAUL LAMAS'S NUMBER FROM [facility] ([phone]/ ) IF THEY MIGHT HAVE FURTHER QUESTIONS REGARDING THE BIPAP MACHINE WHEN PT IS ALREADY AT HOME.
--- NOTE | 2016-08-16 17:44 | NUR ---
TOLERATING BIPAP TO MASK WELL WITHOUT INCIDENT BREATH SOUNDS DECREASED BILATERAL WITH GOOD CHEST RISE AIRWAY PATENT SATURATION 96% ON FIO2 OF 40% TITRATED FIO2 TO 35% BRYCE/RN NOTIFIED
--- NOTE | 2016-08-16 17:45 | NUR ---
PHOTOS TAKEN ON PT'S FACIAL PRESSURE (SIDES OF NOSE) FROM BIPAP GEL MASK. DOCUMENTED, DR. AYALA NOTIFIED.
--- NOTE | 2016-08-16 19:30 | NUR ---
PT SLEEPING AT THIS TIME, EASILY AROUSABLE.NO RESPIRATORY DISTRESS, NO FACIAL GRIMACING OR MOANING INDICATING PAIN. IN STABLE CONDITION. ALL NEEDS ANTICIPATED AND MET. ENDORSED TO NEXT SHIFT FOR CONTINUITY OF CARE.
--- NOTE | 2016-08-16 19:31 | NUR ---
RECEIVED PT FROM [facility] NURSE PT ALERT IN PERSON ON BIPAP NOT SOB NOTED ON TELMETRY SR G TUBE FEEDING WELL TOLERATED REPOSITIONED INITIAL ASSESSMENT DONE
[2016-08-16] MEDS ORDERED: LEVOFLOXACIN 750 MG/D5W PREMIX 150 ML IV SCH (20:00)
--- NOTE | 2016-08-16 21:00 | NUR ---
RT ASSISTING THEPT ON BIAPAP NOT SOB NOTED REPOSITIONED BELL CATH DRAINING WELL YELLO URINE SR ON TELEMETRY
[2016-08-16] MEDS: rOPINIRole 0.25 MG TAB PO SCH (22:00)
[2016-08-16] MEDS: traMADol 50 MG TAB PO PRN (23:04)
[2016-08-17] VITALS: BP 153/69
[2016-08-17] MEDS: CLINDAMYCIN 600 MG in DEXTROSE 5% 50 ML IV SCH ×4 (00:29→18:25)
[2016-08-17] MEDS: Z-GUARD PASTE TP SCH ×2 (01:00→15:06)
--- NOTE | 2016-08-17 01:00 | NUR ---
PT CONTINUING ON BIAPAP NOT SOB NOTED ON TELE SR MONITORING CLOSE
[2016-08-17] MEDS: ALBUTEROL 0.083% 2.5 MG/3 ML NEBU IH SCH ×4 (01:56→19:30)
[2016-08-17 04:00] VITALS: BP 159/80
--- NOTE | 2016-08-17 04:00 | NUR ---
PT TEMP 101 COOL MEAURES GIVEN AND DR WILL BE CALL FOR MEDIC TO LOWER THE TEMP
--- NOTE | 2016-08-17 04:23 | NUR ---
0415 PLACED PT ON 100%FIO2 DUE TO HER SATS DROPPING TO 85%
[2016-08-17] MEDS ORDERED: IBUPROFEN 400 MG TAB PO PRN (04:40)
[2016-08-17] MEDS ORDERED: IBUPROFEN 400 MG TAB ONE (04:54)
[2016-08-17] MEDS: methylPREDNISolone SS 125 MG/2 ML VIAL IVP SCH ×3 (05:17→20:56)
--- NOTE | 2016-08-17 05:35 | NUR ---
PT SP02 100%, DECREASE FI02 TO 40%, ROSSANA CHILD AWARE. WILL ENDORSE CONT OF CARE TO AM RT.
--- NOTE | 2016-08-17 05:53 | NUR ---
PT SP02 REMAINS STABLE, 97% AT THIS TIME.
--- NOTE | 2016-08-17 06:03 | NUR ---
TEMP 98 AFTER MOTRIN GIVEN AND COOL MEASURES APPLY REPOSITIONED ON TELMETRY SR ON BIB PAP 40%
[2016-08-17] MEDS: BUDESONIDE 0.5 MG/2 ML NEBU INH SCH ×2 (06:56→19:30)
--- NOTE | 2016-08-17 07:05 | NUR ---
RECEIVED SBAR REPORT FROM MATEUSZ TRACY AT PT BEDSIDE. PT RESTING IN BED. ON BIPAP 40% FIO2. RESPIRATIONS 40. IV SITE PATENT AND INTACT. PT IS APHASIC, BEDBOUND. WEAKNESS ALL EXTREMITIES. HAS BELL IN PLACE TO GRAVITY. G-TUBE SITE PATENT AND INTACT, 10ML RESIDUAL NOTED. SAFETY MEASURES ENSURED. ALARMS CHECKED. WILL CONTINUE TO MONITOR.
--- NOTE | 2016-08-17 07:06 | NUR ---
RECEIVED PT ON BIPAP. SETTINGS /, R 20, FIO2 40%. PT BREATHING IS LABORED AT THIS TIME. PT RECEIVED BREATHING TX WITH NO ADVERSE REACTIONS. BIPAP ALARMS ARE ON AND FUNCTIONING. WILL CONTINUE TO MONITOR.
[2016-08-17 08:00] VITALS: BP 163/75
--- NOTE | 2016-08-17 08:20 | NUR ---
ROUNDED WITH DR. JARRETT AT BEDSIDE. MADE AWARE OF PATIENT CONDITIONS. MD TO SPEAK WITH FAMILY. NO NEW ORDERS.
--- NOTE | 2016-08-17 08:30 | NUR ---
ABG RESULTS GIVEN TO , NO CHANGES OR NEW ORDERS MADE AT THIS TIME. WILL CONTINUE TO MONITOR.
[2016-08-17] MEDS: CALCIUM ACETATE 667 MG TAB GT SCH ×3 (08:37→17:00)
[2016-08-17] MEDS: FERROUS SULFATE 325 MG TABEC PO SCH (08:38)
[2016-08-17] MEDS: SUCRALFATE 1 GM TAB PO SCH (08:38)
[2016-08-17] MEDS: METOPROLOL 25 MG TAB PO SCH ×2 (08:38→20:56)
[2016-08-17] MEDS: LISINOPRIL 5 MG TAB PO SCH (08:38)
[2016-08-17] MEDS: ISOSORBIDE DINITRATE 10 MG TAB GT SCH ×2 (08:38→15:06)
[2016-08-17] MEDS: ATORVASTATIN 20 MG TAB PO SCH (08:38)
[2016-08-17] MEDS: ASPIRIN 81 MG TAB.CHEW PO SCH (08:38)
[2016-08-17] MEDS: ASCORBIC ACID 500 MG/5 ML ORASYR GT SCH (08:39)
[2016-08-17] MEDS ORDERED: ERGOCALCIFEROL 50,000 IU SGL PO SCH (09:00)
[2016-08-17] MEDS ORDERED: NACL 0.45% 1,000 ML IV SCH (09:10)
--- NOTE | 2016-08-17 09:11 | NUR ---
PT DESATURATING TO MID 80'S FIO2 INCREASED TO 50%, NURSE STEPHEN AWARE. WILL CONTINUE TO MONITOR.
--- NOTE | 2016-08-17 10:10 | NUR ---
ASSISTED PT IN CHANGING OF POSITIONS. PT HAD BM, PATIENT CLEANED. LINENS CLEAN AND DRY, DRESSING REPLACED ON SACRAL.
--- NOTE | 2016-08-17 10:27 | NUR ---
G-TUBE FEEDING BAG AND LINE REPLACED.
[2016-08-17 12:00] VITALS: BP 148/70
--- NOTE | 2016-08-17 12:01 | NUR ---
CM NOTE SPOKE WITH DAVE RINCON OF [facility]# [phone] AND SHE SAID IN CASE PATIENT WILL BE DISCHARGED,THE AMBULANCE TO USE IS [facility]# [phone], AMBULANCE AUTH# [id number]. TO SET UP AMBULANCE TRANSPORTATION IF NEEDED WHEN PATIENT GETS DISCHARGED. CHARGE NURSE PADILLA ALBERT EXT [phone]. SENT CONCURRENT REVIEW TO [facility] FAX# [phone] MARGIE RINCON # [phone]
--- NOTE | 2016-08-17 13:00 | NUR ---
DR. AYALA SPOKE WITH PATIENT'S FAMILY, SON, AT PT BEDSIDE REGARDING PLAN OF CARE. PATIENT'S FAMILY IN AGREEMENT TO CONTINUE WITH CURRENT PLAN OF CARE.
--- NOTE | 2016-08-17 13:47 | NUR ---
08/17/16 RD FOLLOW-UP ASSESSMENT COMPLETED PLEASE REFER TO NUTRITION ASSESSMENT UNDER CARE ACTIVITY FOR ESTIMATED NUTRITIONAL NEEDS. 1. CONTINUE ENTERAL NUTRITION SUPPORT: ISOSOURCE 1.5 JENNA AT 50 ML/HR 2. RD TO FOLLOW-UP 2-3 DAYS; HIGH RISK SONIYA BLACK, ERICKSON
--- NOTE | 2016-08-17 14:59 | NUR ---
CM NOTE SPOKE WITH DAVE RINCON OF [facility] PH# [phone] AND SHE SAID TO GO AHEAD AND USE [facility] FOR CRITICAL CARE TRANSPORT FOR PATIENT ON BIPAP WHEN DISCHARGED TO HOME, AMBULANCE AUTH# [id number]. SPOKE WITH REGULO OF [facility] PH# [phone] TO SET UP PATIENT TRANSPORT ON WILL CALL FOR 08/18/16. PATIENT'S NURSE TO CALL [facility] FIRST THING IN THE MORNING ON 08/18/16 AND TO COORDINATE WITH PATIENT'S FAMILY TO MAKE SURE THERE WILL BE SOMEONE AT HOME TO ACCEPT THE PATIENT WHEN DISCHARGED. CHARGE NURSE PADILLA ALBERT EXT [phone].
[2016-08-17] MEDS: THERAHONEY GEL 42.5 GM TP SCH (15:06)
[2016-08-17 16:00] VITALS: BP 138/64
--- NOTE | 2016-08-17 17:06 | NUR ---
PT RESTING IN BED. ON BIPAP 50% FIO2 SAT 93%. LINENS CLEAN AND DRY. WILL CONTINUE TO MONITOR.
--- NOTE | 2016-08-17 17:39 | NUR ---
PT REMAINS ON BIPAP AT THIS TIME. NO CHANGES MADE. BIPAP ALARMS REMAIN ON AND FUNCTIONING. PROTECTA-GEL REMAINS UNDER MASK.
--- NOTE | 2016-08-17 19:25 | NUR ---
SBAR REPORT GIVEN TO MATEUSZ SCHAFER AT PT BEDSIDE. NO S/S OF ACUTE DISTRESS.
--- NOTE | 2016-08-17 19:30 | NUR ---
RECEIVED REPORT FROM STEPHEN CHILD AT BEDSIDE. PT IS NON-VERBAL RESPONSIVE. ONLY AROUSABLE TO PAINFUL STIMULI. PT IS [place] USING HER ACCESORY MUSCLE TO BREATHE. ON BIPAP MACHINE WITH FIO2 OF 50%. ON G-TUBE FEEDING ISOSOURCE @50ML/HR CONTINUOUS. PLACEMENT AND PATENCY ARE CONFIRMED. PT HAS BELL CATHETER BY GRAVITY AND DRAINING WELL. PLAN OF CARE REVIEWED TO PT BUT UNABLE TO COMPREHEND. CALL LIGHT WITHIN REACH. WILL CONTINUE TO MONITOR.
[2016-08-17 20:00] VITALS: BP 152/69
[2016-08-17] MEDS: rOPINIRole 0.25 MG TAB PO SCH (20:57)
--- NOTE | 2016-08-17 21:05 | NUR ---
PT DESATURATING TO LOW 80'S, INCREASE FI02 TO 60% HANH CHILD AWARE. WILL CONT TO MONITOR.
[2016-08-17] MEDS: traMADol 50 MG TAB PO PRN (21:11)
--- NOTE | 2016-08-17 21:30 | NUR ---
PT STILL DESATURATING, INCREASE FI02 TO 100%.
--- NOTE | 2016-08-17 21:45 | NUR ---
CALLED DR. GAN AND NOTIFIED REGARDING PT'S STATUS, V/S T98.2, P90, R45-50, BP152/99, O2SAT 86% ON BIPAP WITH FIO2 OF 100%, PT IS HARD TO AROUSE, AND DR. GAN SAID THAT THERE'S NOTHING WE CAN DO D/T PT IS MODIFIED CODE, WITH NO COMPRESSION, NO INTUBATION. WILL CONTINUE TO MONITOR.
--- NOTE | 2016-08-17 21:55 | NUR ---
PT IS UNRESPONSIVE WITH V/S T97.5, P35, R16, BP81/42, O2SAT 67% ON BIPAP MACHINE WITH FIO2 OF 100%. CALLED [facility] TEAM AND DR. BENOIT CAME AND INTERVENE. CHARGE NURSE PUSHPA CALLED MAGO ARREDONDO THE SON AND NOTIFIED THE STATUS OF HER MOTHER AND VERBALIZED UNDERSTANDING.
--- NOTE | 2016-08-17 22:06 | NUR ---
DR. BENOIT SAID THAT PT IS UNRESPONSIVE, NO PULSE AND NOT BREATHING AND HE PRONOUNCE PT HAS @ 2206. NURSE SALES AND MARKETING ADMINISTRATOR MAYURI AT BEDSIDE NOTIFIED.
--- NOTE | 2016-08-17 22:10 | NUR ---
CALLED MAGO ARREDONDO AND NOTIFIED THAT OBI ARREDONDO HER MOTHER HAS JUST PRONOUNCE BY DR. BENOIT ER DOCTOR AND VERBALIZED UNDERSTANDING. AND SAID THAT THEY'LL BE THE ONE TO CALL THE MORTUARY. CHARGE NURSE PUSHPA NOTIFIED.
--- NOTE | 2016-08-17 22:15 | NUR ---
CALLED DR. GAN AND NOTIFIED THAT PT HAS PRONOUNCE BY ERMD DR. BENOIT AND SAID THAT THEY WILL DO THE PAPERWORKS IN THE MORNING. [facility].
--- NOTE | 2016-08-17 22:25 | NUR ---
CALLED [facility] AND SPOKE TO SARIKA Allen AND REPORTING PATIENT'S AND PATIENT'S INFORMATION AND SAID THAT PT IS NOT SUITABLE FOR [employer]GAN DONATION AND GIVE ME REFERRAL # [id number].
--- NOTE | 2016-08-17 23:15 | NUR ---
CALLED MAGO ARREDONDO AND HE'S GIVING THE TELEPHONE CONSENT TO RELEASE THE REMAINS TO MORTUARY WITNESSED BY TWO RN'S, MARBIN MAZARIEGOS AND ME. NURSE ADVANCED ANALYTICS ASSOCIATE MAYURI NOTIFIED.
--- NOTE | 2016-08-17 23:30 | NUR ---
[facility] AND SAID THAT THE WILL BE HERE IN 1HR & 30 MINS.
[2016-08-18] MEDS: CLINDAMYCIN 600 MG in DEXTROSE 5% 50 ML IV SCH
--- NOTE | 2016-08-18 01:05 | NUR ---
[facility]AME TO P[facility] PATIENT'S REMAIN SIGNED PAPERS. HE LEFT THE UNIT WITH THE REMAINS AT 0105. NURSE GAME PROGRAMMER YULISSA NOTIFIED.
== END 2016-08-17 22:06 | disposition expired | DRG 871 ==
LOC: MED 18:04 → MTU 19:33
PROVIDERS: ADMIT Family Medicine; ATTEND Family Medicine
PROC: 5A09457 Assistance with Respiratory Ventilation, 24-96 Consecutive Hours, Continuous Positive Airway Pressure (ICD-10-PCS; principal; 2016-08-13)
DX: A41.9 Sepsis, unspecified organism (principal); J69.0 Pneumonitis due to inhalation of food and vomit; I21.3 ST elevation (STEMI) myocardial infarction of unspecified site; N17.0 Acute kidney failure with tubular necrosis; E43 Unspecified severe protein-calorie malnutrition; J96.21 Acute and chronic respiratory failure with hypoxia; J96.22 Acute and chronic respiratory failure with hypercapnia; L89.313 Pressure ulcer of right buttock, stage 3; L89.153 Pressure ulcer of sacral region, stage 3; G93.41 Metabolic encephalopathy; J44.1 Chronic obstructive pulmonary disease with (acute) exacerbation; N39.0 Urinary tract infection, site not specified; E87.1 Hypo-osmolality and hyponatremia; Z68.1 Body mass index [BMI] 19.9 or less, adult; Z66 Do not resuscitate; E83.41 Hypermagnesemia; R13.10 Dysphagia, unspecified; K21.9 Gastro-esophageal reflux disease without esophagitis; E87.8 Other disorders of electrolyte and fluid balance, not elsewhere classified; G20 Parkinson's disease; G30.9 Alzheimer's disease, unspecified; E03.9 Hypothyroidism, unspecified; G89.29 Other chronic pain; F02.80 Dementia in other diseases classified elsewhere, unspecified severity, without behavioral disturbance, psychotic disturbance, mood disturbance, and anxiety; M62.50 Muscle wasting and atrophy, not elsewhere classified, unspecified site; Z51.5 Encounter for palliative care; E83.39 Other disorders of phosphorus metabolism; I13.10 Hypertensive heart and chronic kidney disease without heart failure, with stage 1 through stage 4 chronic kidney disease, or unspecified chronic kidney disease; D64.9 Anemia, unspecified; N18.9 Chronic kidney disease, unspecified; F41.9 Anxiety disorder, unspecified; Z93.1 Gastrostomy status; Z86.73 Personal history of transient ischemic attack (TIA), and cerebral infarction without residual deficits; Z88.6 Allergy status to analgesic agent; Z88.5 Allergy status to narcotic agent; Z88.8 Allergy status to other drugs, medicaments and biological substances; Z79.82 Long term (current) use of aspirin; Z79.899 Other long term (current) drug therapy; Z90.710 Acquired absence of both cervix and uterus